=== PATIENT | male | born 1945 | race Caucasian/White ===

== ENCOUNTER 2016-04-11 12:17 | Emergency (ER) | payer MEDICARE, OTHER ==
[2016-04-11] MEDS ORDERED: TDaP 0.5 ML VIAL IM.VACC ONE (14:15)
== END 2016-04-11 15:32 | disposition home or self-care (01) ==
LOC: ER 12:17
DX: G45.0 Vertebro-basilar artery syndrome (principal); S60.512A Abrasion of left hand, initial encounter
CPT/HCPCS: 36415; 70450; 80053; 82947; 85025; 93005; 96372